=== PATIENT | male | born 1965 | race Caucasian/White ===

== ENCOUNTER 2023-05-19 07:56 | Emergency (ER) | payer OTHER, SELFPAY ==
[2023-05-19 07:57] VITALS: BP 158/91; PULSE 66; RESP 15; TEMP 36.4; O2SAT 98; BMI 30.6
--- NOTE | 2023-05-19 08:31 | CT_ITS ---
STUDY: CTA CHEST REASON FOR EXAM: Male, 57 years old. Chest pain pulmonary embolism RADIATION DOSAGE (If Supplied By Facility): CTDIvol = ( 6.19 ) mGy, DLP = ( 177.84 ) mGycm TECHNIQUE: The examination was performed with the intravenous administration of IV 100mL Isovue-370. Post-processing of the angiographic images was performed, with multiplanar reformation and 3D reconstruction. Individualized dose optimization techniques were used for this CT. COMPARISON: No relevant prior comparison study available FINDINGS: Normal enhancement of the main pulmonary artery and right and left pulmonary arteries. Normal enhancement of the bilateral peripheral pulmonary arteries. There is no demonstrated pulmonary embolism. Normal thoracic aorta and visualized great vessels. There is no demonstrated aortic dissection. Normal heart and pericardium. Normal mediastinum. Normal hilar regions. Normal visualized trachea and bronchi. The lungs are well expanded. Bilateral apical pleural fibrotic changes. No evidence of pulmonary infiltrates. There are no pleural effusions. Normal chest wall structures. No demonstrated acute osseous changes. Schmorl''s nodes. The visualized upper abdomen demonstrates no acute process. CT/CTA Chest W/WO Contrast IMPRESSION: 1. No evidence of pulmonary embolism or aortic dissection. 2. No acute pulmonary infiltrate, adenopathy or pleural effusions. Electronically Signed: Gabriel Montoya MD at 10:12 [facility] ,
--- NOTE | 2023-05-19 08:32 | EKG12_ITS ---
Test Reason : NAUSEA Blood Pressure : / mmHG Vent. Rate : 060 BPM Atrial Rate : 060 BPM P-R Int : 122 ms QRS Dur : 086 ms QT Int : 420 ms P-R-T Axes : 044 058 049 degrees QTc Int : 420 ms Normal sinus rhythm Minimal voltage criteria for LVH, may be normal variant ( Sokolow-Louie ) Nonspecific ST abnormality Abnormal ECG Confirmed by Andrew Smith ([id number]), manager editorial JOSE THORPE ([id number]) on 05/21/2023 9:31:15 AM Referred By: Confirmed By:Andrew Smith
--- NOTE | 2023-05-19 09:03 | EDS_ITS ---
HPI History of Present Illness Chief Complaint: Nausea/Vomiting Informant: patient and family Narrative Narrative: 57-year-old male brought to the emergency room with chief complaint of chest pressure. Patient states that last Friday he underwent a skin biopsy of the anterior chest wall for presumed skin cancer. He is currently awaiting those results. Last evening he began to have a pressure-like sensation that continued until this morning. He has been noting some dyspnea with exertion which she has attributed to mental stress. He states that today he did not feel well enough that he can continue working. 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 He notes that he did have a headache this morning which has resolved. He notes some slight weight loss which he again contributes to stress. He denies any known cardiac history. No prior DVT or PE history. He denies any drainage from the biopsy site or redness or fevers. He denies any abdominal symptoms but does note that he did have some nausea earlier this morning. He is concerned about metastatic cancer. His brother is with him and notes that he is very anxious and perseverating/worried about his skin cancer. 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: [facility] ROS ROS ED Constitutional Constitutional ED: Denies chills, fever(s) or weight loss Eyes Eyes: Denies change in vision or diplopia ENT ENT ED: Denies ear pain, rhinorrhea or sore throat Cardiovascular Cardiovascular: Reports chest pain; Denies orthopnea, palpitations or racing heartbeat Respiratory/Chest Respiratory/Chest: Reports dyspnea on exertion; Denies cough, dyspnea or or thopnea Gastrointestinal Gastrointestinal: Reports nausea; Denies abdominal pain, diarrhea or vomiting Genitourinary Genitourinary ED: Denies dysuria, hematuria or urinary frequency Musculoskeletal Musculoskeletal: Denies arthralgias or myalgias Integumentary Reports other Details: Anterior chest skin change concerning for malignancy ; Denies abscess or rash Neurologic Neurologic: Reports headache(s); Denies weakness Psychiatric Psychiatric: Denies anxiety, depression, suicidal ideation or suicidal thoughts Endocrine Endocrinology: Denies polydipsia, polyphagia or polyuria Allergic/Immunologic Allergic/Immunologic ED: Denies mouth swelling, tongue swelling or urticaria EXAM Physical Exam Const Vital Signs: 05/19/23 07:57 05/19/23 10:19 05/19/23 12:00 Temperature 97.6 F L Temperature Source Temporal Pulse Rate 66 61 84 Respiratory Rate 15 13 16 Blood Pressure 158/91 H 146/82 H 127/66 H Blood Pressure Mean 113 103 86 Pulse Ox 98 97 97 Oxygen Delivery Method Room Air Room Air Room Air 05/19/23 12:10 Temperature 98.1 F Temperature Source Pulse Rate 76 Respiratory Rate 15 Blood Pressure 148/79 H Blood Pressure Mean 102 Pulse Ox 96 Oxygen Delivery Method Positive well nourished and well developed General Appearance ED: well developed HEENT Reports normocephalic, head/scalp atraumatic and moist mucous membranes Eyes PERRL and EOMs intact bilaterally Neck no lymphadenopathy, supple and no JVD Chest Wall palpation of chest normal Chest Narrative: Anterior chest wall along the midline demonstrates a dime sized area of skin changes concerning for skin malignancy. There is no significant surrounding erythema or obvious evidence of secondary infection. The chest wall itself is nontender. Resp normal respiratory effort and clear to auscultation bilaterally Cardio regular rate, regular rhythm and no murmurs GI normal to inspection, nondistended, normoactive bowel sounds and non-tender Palpation: soft Back/Spine no CVA tenderness and normal ROM Extremity normal to inspection General Extremety ED: Negative for edema General Extremity: Negative for edema Neuro oriented x3 and CN's II-XII intact bilaterally Sensorium / Orientation: alert Motor Exam: strength 5/5 throughout Psych mental status grossly normal Mood & Affect: anxious; Negative for depressed or tearful Skin no rashes or lesions noted and no wounds MDM MDM MDM Narrative Medical decision making narrative: EKG is nonischemic. CBC BMP showed glucose of 107 with no anemia normal creatinine. 2 sets of troponins are negative. Given that his symptoms been going on greater than 8 hours 2 sets are negative I doubt that this is ACS in nature. CTA of the chest demonstrates no metastatic disease pleural effusion pneumonia pulmonary embolism or aortic dissection. No obvious pericardial effusion is noted. I spoke with the patient regarding his results. He is comfortable with discharge. I do note that he is extremely anxious about the possibility of cancer and is gone so far as to already start planning getting chemotherapy and expecting a bad outcome. I think some Xanax may help him particularly at night as he is telling me that he is having difficulty sleeping. I will write him a few and if they are helpful he can talk to his doctor if he needs more. 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 History & Record Review Discussion w/independent historian: Patient and Family Lab Data Attestation: I reviewed the patient's lab results. Labs: Laboratory Results - last 24 hr 05/19/23 05/19/23 09:10 11:21 WBC 7.0 RBC 4.87 Hgb 14.2 Hct 41.9 MCV 86.0 MCH 29.2 MCHC 33.9 RDW Std Deviation 44.5 H RDW Coeff of Hiro 14.1 Plt Count 331 MPV 9.7 Immature Gran % (Auto) 0.400 Neut % (Auto) 64.3 Lymph % (Auto) 25.5 [place] % (Auto) 8.3 Eos % (Auto) 0.6 Baso % (Auto) 0.9 Absolute Neuts (auto) 4.5 Absolute Lymphs (auto) 1.79 Nucleated RBC % 0 Sodium 133 L Potassium 4.0 Chloride 103 Carbon Dioxide 26.0 Anion Gap 4 L BUN 9 Creatinine 0.68 L Estim Creat Clear Calc 123.24 Est GFR (MDRD) Af Amer 153 Est GFR (MDRD) Non-Af 127 BUN/Creatinine Ratio 13.2 Glucose 107 H Calcium 9.2 Troponin I High Sens 7 6 Radiography Diagnostic Testing: Clinical Impression(s) from Imaging Studies Chest CTA 05/19/23 08:31 IMPRESSION: 1. No evidence of pulmonary embolism or aortic dissection. 2. No acute pulmonary infiltrate, adenopathy or pleural effusions. Electronically Signed: Gabriel Montoya MD at 10:12 EST , EKG Initial EKG: Attestation: I personally reviewed and interpreted this EKG as follows: Comments: Normal sinus rhythm with a ventricular rate of 60 bpm. No definitive features of ACS noted. Discharge Plan Triage Chief Complaint: Nausea/Vomiting ED Provider: James Sol Dx/Rx/DC Orders Clinical Impression: Skin cancer, Anxiety, Chest pain Instructions: ED Anxiety Reaction, ED Chest Pain, Noncardiac Prescriptions: New alprazolam [Xanax] 0.5 mg tablet 0.5 mg PO TID PRN (Reason: anxiety) Qty: 12 0RF No Action multivitamin Tablet 1 tab PO DAILY Primary Care Provider: Pete Adam Referrals: Pete Adam DO [Primary Care Provider] - As soon as possible Disposition Disposition: Home, Self Care Discharge Date/Time: 05/19/23 12:18
[2023-05-19 09:20] LABS: Absolute Lymphocyte Count 1.79 X10^3/uL (0.83-4.51); Absolute Neutrophil Count 4.5 X10^3/uL (2.0-7.7); Basophil# 0.06 X10^3/uL; Basophil% 0.9 % (0-1); Eosinophil# 0.04 X10^3/uL; Eosinophils% 0.6 % (0-5); Hematocrit 41.9 % (40-54); Hemoglobin 14.2 g/dL (13.0-16.5); Lymphocyte # 1.79 X10^3/ul (0.83-4.51); Lymphocyte % 25.5 % (19-41); Mean Corp Hgb Conc 33.9 g/dL (32-36); Mean Corpuscular Hgb 29.2 pg (27.0-32.0); Mean Platelet Vol. 9.7 fl (6.2-12.0); Monocyte# 0.58 X10^3/uL; Monocyte% 8.3 % (0-10); NRBC Flagged by Analyzer 0 % (0-5); Neutrophil # 4.51 X10^3/uL (2.7-7.7); Neutrophil % 64.3 % (47-70); Platelet Count 331 K/mm3 (150-450); RBC Distribution Width CV 14.1 % (11.6-14.6); RBC Distribution Width SD 44.5 fl (35.1-43.9); Red Blood Count 4.87 M/mm3 (4.6-6.2)
[2023-05-19 09:47] LABS: Anion Gap 4 (5-15); BUN 9 mg/dL (7-18); BUN/Creat Ratio 13.2 RATIO (10-20); Calcium,Total 9.2 mg/dL (8.5-10.1); Chloride 103 mmol/L (98-107); Creatinine, Serum 0.68 mg/dL (0.70-1.30); EST Glomerular Filtration Rate 127 mL/min (>60); Est Glom Filt Rate - Afr Amer 153 mL/min (>60); Estimated Creatinine Clearance 123.24 ml/min; Glucose 107 mg/dL (74-106); Sodium Level 133 mmol/L (136-145); Troponin-I HS (w/2H Reflex) 7 pg/mL (3.0-78.0)
[2023-05-19] MEDS: Aspirin 81 MG TAB.CHEW 324 MG PO (10:18)
[2023-05-19 10:19] VITALS: BP 146/82; PULSE 61; RESP 13; O2SAT 97
--- OUTSIDE RECORDS SUMMARY | 2023-05-19 10:21 | XMS RPT_ITS | CCD ---
Author Name Unknown Address [address] [place] [id number] Organization [facility] Care Team Providers Care Sap Bpc Architect Name Role Phone PHYSICIAN, PATIENT UNSURE Primary Care Jessica MAGANA MD, YUSRA Attending Unavailable Results Test Name Value Interpretation Reference Range Facil ity Encounters Encounter Date Encounter Type Care Provider Facility Start: 05-16-2023 End: 05-16-2023 Emergency department patient visit PATIENT UNSURE PHYSICIAN Facility:A Payers Date Payer Category Payer Unknown [id number] 1965 Unknown [id number] Summary Purpose Family History No Family History Records Found Advance Directives No Advanced Directives Records Found Additional Source Comments (unrecognized sect ion and content) No Status Records Found INFORMATION SOURCE (unrecogn ized section and content) FOR RECORDS PERTAINING TO PATIENTS WHO ARE OR HAVE BEEN ENROLLED IN A CHEMICAL DEPENDENCY/SUBSTANCEABUSE PROGRAM, SOME INFORMATION MAY BE OMITTED. This clinical summary was aggregated from multiple sources. Caution should be exercised in using it in the provision of clinical care. This summary normalizes information from multiple sources, and as a consequence, information in this document may materially change the coding, format and clinical context of patient data. In addition, data may be omitted in some cases. CLINICAL DECISIONS SHOULD BE BASED ON THE PRIMARY CLINICAL RECORDS. [employer] provides no warranty or guarantee of the accuracy or completeness of information in this document.
[2023-05-19 11:17] LABS: Reflex Troponin-HS? (from REC) Y
[2023-05-19 11:43] LABS: Troponin-I HS 6 pg/mL (3.0-78.0)
[2023-05-19 12:00] VITALS: BP 127/66; PULSE 84; RESP 16; O2SAT 97
[2023-05-19 12:10] VITALS: BP 148/79; PULSE 76; RESP 15; TEMP 36.7; O2SAT 96
== END 2023-05-19 12:18 | disposition home or self-care (01) ==
PROVIDERS: Emergency Provider Emergency Medicine; PCP Family Medicine; Visit Provider Emergency Medicine
DX: R07.9 Chest pain, unspecified (principal); F41.9 Anxiety disorder, unspecified; R11.2 Nausea with vomiting, unspecified; R51.9 Headache, unspecified; R06.00 Dyspnea, unspecified; C44.90 Unspecified malignant neoplasm of skin, unspecified
CPT/HCPCS: 71275; 80048; 84484; 85025; 93005; 99284; Q9967; A4216

== ENCOUNTER 2023-05-21 05:47 | Day surgery (SDC) | payer SELFPAY, OTHER ==
--- OUTSIDE RECORDS SUMMARY | 2023-05-21 05:51 | XMS RPT_ITS | CCD ---
Author Name Unknown Address [address] [place] [id number] Organization [facility] Care Team Providers Care Sql Data Analyst Name Role Phone PHYSICIAN, PATIENT UNSURE Primary Care Jessica MAGANA MD, YUSRA Attending Unavailable Results Test Name Value Interpretation Reference Range Facil ity Encounters Encounter Date Encounter Type Care Provider Facility Start: 05-16-2023 End: 05-16-2023 Emergency department patient visit PATIENT UNSURE PHYSICIAN Facility:A Payers Date Payer Category Payer Unknown [id number] 1965 Unknown [id number] Summary Purpose Family History No Family History [...] BE BASED ON THE PRIMARY CLINICAL RECORDS. [employer] provides no warranty or guarantee of the accuracy or completeness of information in this document.
[2023-05-21 06:45] VITALS: BP 130/83; PULSE 78; RESP 18; TEMP 36.6; O2SAT 100; BMI 25.6
[2023-05-21] MEDS: Lactated Ringers 1,000 ML 15 ML IV (06:59)
--- NOTE | 2023-05-21 07:47 | PCM.HP.STD ---
[facility] - General General Date of Admission: 05/21/23 Date of Service: 05/21/23 Chief Complaint: Screening colonoscopy HPI Narrative LISA UNDERWOOD, is a 57 M who presents today for screening colonoscopy. He has never had a colonoscopy in the past. He is not have any abdominal pain, cramping, nausea, vomiting or lower GI bleeding. His bowels been stable. His weight has been stable. Overall is in very good health. He does not take any medicines on daily basis. [facility] Medical History (Updated 05/20/23 @ 08:59 by Vianey Guevara) Alcohol use Anxiety Back pain Chest pain Constipation Heartburn History of stress test Leg cramps Loss of hearing Non-smoker Syncope Wears glasses Home Medications multivitamin 1 tab PO DAILY 05/05/23 [History Last Taken 05/20/23] alprazolam 0.5 mg tablet (Xanax) 0.5 mg PO TID PRN anxiety #12 tabs 05/19/23 [Rx Last Taken 05/21/23] Allergy/AdvReac Type Severity Reaction Status Date / Time No Known Allergies Allergy Verified 05/21/23 06:44 Surgical History (Updated 05/20/23 @ 08:59 by Vianey Guevara) No history of previous surgery Social History household members: other details: Single current occupational status: employed 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 Smoking Status: Never smoker alcohol intake: never substance use type: does not use jake/judaism: Congregational ROS Review of Systems ROS Unobtainable: other Constitutional Constitutional: Denies fatigue, fever(s), poor appetite, weight gain or weight loss ENT HEENT: Denies mouth lesions Cardiovascular Cardiovascular: Denies abdominal bloating, abdominal edema or abdominal pain Respiratory/Chest Respiratory/Chest: Denies change in mental status, change in phlegm color, chest congestion or chest tightness Gastrointestinal Gastrointestinal: Denies belching, bloating, change in bowel habits, change in stool character, chewing difficulty, coffee ground emesis, constipation, cramping, diarrhea, dyspepsia, dysphagia, early satiety, excessive flatus, fecal incontinence, heartburn, hematemesis, hematochezia, hemorrhoids, loose stools, melena, nausea, odynophagia, rectal bleeding, tenesmus, vomiting or weight changes Genitourinary Genitourinary: Denies abdominal discomfort, burning urination or itching Musculoskeletal Musculoskeletal: Reports as per HPI; Denies muscle weakness or myalgias Integumentary Integumentary: Denies jaundice Neurologic Neurologic: Denies lack of coordination or weakness Psychiatric Psychiatric: Denies confusion, depression, memory loss, mood swings, paranoia or suicidal ideation Endocrine Endocrinology: Denies systems reviewed and no addt'l complaints, except as documented Hematologic/Lymphatic Hematologic/Lymphatic: Denies anemia, easy bleeding, easy bruising or lymphadenopathy Allergic/Immunologic Allergic/Immunologic: Denies systems reviewed and no addt'l complaints, except as documented Vital Signs Vital Signs Vital Signs: 05/21/23 06:45 05/21/23 06:45 Temperature 97.9 F Temperature Source Temporal Pulse Rate 78 Respiratory Rate 18 Respiratory Pattern Normal Blood Pressure 130/83 H Blood Pressure Mean 98 Blood Pressure Source Monitor Blood Pressure Position Semi-Fowlers Blood Pressure Location Right Arm Pulse Ox 100 Oxygen Delivery Method Room Air Weight Weight: 158 lb 11.725 oz Body Mass Index (BMI) 25.6 Physical Exam Const alert General Appearance: cooperative Orientation / Consciousness: oriented to person HEENT hearing grossly normal bilaterally Head and Scalp: normal to inspection Face and Sinus: face symmetric Nose: external nose normal Mouth: oral and palatal mucosa normal Eyes conjunctivae normal General Eye: normal appearance of both eyes Neck full ROM General: normal visual inspection Lymph Lymphatic: no lymphadenopathy noted Chest inspection of chest normal and palpation of chest normal Chest: symmetrical chest wall rise Resp normal respiratory effort Effort and Inspection: able to speak in complete sentences Cardio regular rate GI non-distended Percussion: normal to percussion Rectal Exam: deferred Neuro Speech: speech normal Gait (Neuro): normal gait Assessment & Plan Assessment/Plan (1) Encounter for screening for malignant neoplasm of colon: PLAN: He was explained alternatives, risk, benefits including outstanding bleeding, infection, sepsis, perforation, need for emergent surgery . He will have an ASA of 2.
[2023-05-21 08:20] VITALS: BP 130/83; BP 96/57; PULSE 58; RESP 16; TEMP 36.3; O2SAT 96
--- NOTE | 2023-05-21 08:20 | OP.COLON_ITS ---
Patient Name: Frank Peralta Procedure Date: 05/21/2023 7:52 AM Date of : 1965 Age: 57 Procedure: Colonoscopy Indications: Screening for colorectal malignant neoplasm Providers: Torrey Rasheed DO Referring MD: Torrey Rasheed DO Medicines: Monitored Anesthesia Care Patient Profile: This is a 57 year old male. Refer to note in patient chart for documentation of history and physical. Last Colonoscopy: none. The patient's first colonoscopy is today. Complications: No immediate complications. Procedure: Pre-Anesthesia Assessment: - Prior to the procedure, a History and Physical was performed, and patient medications and allergies were reviewed. The patient is competent. The risks and benefits of the procedure and the sedation options and risks were discussed with the patient. All questions were answered and informed consent was obtained. Patient identification and proposed procedure were verified by the physician in the pre-procedure area. Mental Status Examination: alert and oriented. Airway Examination: normal oropharyngeal airway and neck mobility. Respiratory Examination: clear to auscultation. CV Examination: normal. Prophylactic Antibiotics: The patient does not require prophylactic antibiotics. Prior Anticoagulants: The patient has taken no anticoagulant or antiplatelet agents. After reviewing the risks and benefits, the patient was deemed in satisfactory condition to undergo the procedure. The anesthesia plan was to use monitored anesthesia care (MAC). Immediately prior to administration of medications, the patient was re-assessed for adequacy to receive sedatives. The heart rate, respiratory rate, oxygen saturations, blood pressure, adequacy of pulmonary ventilation, and response to care were monitored throughout the procedure. The physical status of the patient was re-assessed after the procedure. After I obtained informed consent, the scope was passed under direct vision. Throughout the procedure, the patient's blood pressure, pulse, and oxygen saturations were monitored continuously. The Colonoscope was introduced through the anus and advanced to the cecum, identified by appendiceal orifice and ileocecal valve. The colonoscopy was performed without difficulty. The patient tolerated the procedure well. The quality of the bowel preparation was adequate. The ileocecal valve, appendiceal orifice, and rectum were photographed. Scope In: 8:01:35 AM Scope Withdrawal Time 0 hours 8 minutes 9 seconds Scope Out: 8:14:12 AM Total Procedure Duration Time 0 hours 12 minutes 37 seconds Findings: The perianal and digital rectal examinations were normal. Non-bleeding internal hemorrhoids were found during retroflexion. The hemorrhoids were Grade I (internal hemorrhoids that do not prolapse). A few small-mouthed diverticula were found in the sigmoid colon. The exam was otherwise without abnormality on direct and retroflexion views. Impression: - Non-bleeding internal hemorrhoids. - Diverticulosis in the sigmoid colon. - The examination was otherwise normal on direct and retroflexion views. - No specimens collected. Recommendation: - Discharge patient to home. - Resume previous diet. - Continue present medications. - Repeat colonoscopy in 10 years for surveillance. Procedure Code(s): --- Professional --- G0121, Colorectal cancer screening; colonoscopy on individual not meeting criteria for high risk CPT copyright 2021 [employer]. All rights reserved. The codes documented in this report are preliminary and upon svp marketing review may be revised to meet current compliance requirements. Torrey Rasheed DO 05/21/2023 8:20:32 AM This report has been signed electronically. Number of Addenda: 0 Note Initiated On: 05/21/2023 7:52 AM
--- NOTE | 2023-05-21 08:21 | OP.CCLET_ITS ---
05/21/2023 Pete Adam Re : Colonoscopy procedure for Frank Peralta Gracielar Kia This procedure was performed on Sunday, May 21, 2023. My impressions and recommendations are as follows: Impressions : - Non-bleeding internal hemorrhoids. - Diverticulosis in the sigmoid colon. - The examination was otherwise normal on direct and retroflexion views. - No specimens collected. Recommendations : - Discharge patient to home. - Resume previous diet. - Continue present medications. - Repeat colonoscopy in 10 years for surveillance. My findings are described in the full procedure note, which is enclosed. If I can be of further assistance, please feel free to contact me at . Sincerely, Torrey Rasheed, 05/21/2023 8:20:32 AM This report has been signed electronically.
[2023-05-21 08:25] VITALS: BP 130/83; BP 82/55; PULSE 68; RESP 16; O2SAT 98
[2023-05-21 08:30] VITALS: BP 107/63; BP 130/83; PULSE 62; RESP 16; O2SAT 98
[2023-05-21 08:35] VITALS: BP 130/83; BP 91/65; PULSE 68; RESP 16; TEMP 36.6; O2SAT 98
[2023-05-21 09:07] VITALS: BP 130/83
== END 2023-05-21 09:09 | disposition home or self-care (01) ==
LOC: EN 05:49 → AC 05:52
PROVIDERS: PCP Family Medicine; Referring Provider Family Medicine; Visit Provider Internal Medicine Gastroenterology
PROC: 0DJD8ZZ Inspection of Lower Intestinal Tract, Via Natural or Artificial Opening Endoscopic (ICD-10-PCS; CPT 45378; principal; 2023-05-21 07:25)
DX: Z12.11 Encounter for screening for malignant neoplasm of colon (principal); K57.30 Diverticulosis of large intestine without perforation or abscess without bleeding; K64.0 First degree hemorrhoids
CPT/HCPCS: G0121; J7120; J2405